=== PATIENT | male | born 2000 | race Caucasian/White ===

== ENCOUNTER 2022-06-25 17:01 | Emergency (ER) | payer OTHER, SELFPAY ==
[2022-06-25 17:06] VITALS: BP 154/77; PULSE 89; RESP 18; TEMP 36.4; O2SAT 99
--- NOTE | 2022-06-25 17:30 | ED.SKABFB ---
HPI - Skin/Abscess/Foreign Bdy General Chief complaint: Skin/Abscess/Foreign Body Stated complaint: abscess Time Seen by Provider: 06/25/22 17:20 History of Present Illness HPI narrative: 21-year-old male here for evaluation of the area of redness and swelling to his right thigh. Patient states that he noticed a an ingrown hair about 3 days ago. He began to pick at the area and has been squeezing to attempt expressing drainage, and since then he has noticed surrounding redness and increased pain at the site. He has been applying triple antibiotic ointment and hot compresses. He denies any fevers or chills, nausea or vomiting, systemic symptoms. Related Data Allergies Allergy/AdvReac Type Severity Reaction Status Date / Time No Known Allergies Allergy Verified 06/25/22 17:12 Review of Systems Review of Systems: Gen: Denies fevers or chills Eyes: Denies eye pain or visual change ENT: Denies congestion Respiratory: Denies shortness of breath or cough CV: Denies chest pain or palpitations GI: Denies abdominal pain nausea, emesis or diarrhea denies burning, urgency, frequency or hematuria Musculoskeletal: Denies back pain or muscle pain Neuro: Denies numbness, tingling, weakness or focal weakness Skin: Reports redness and swelling to right thigh Except as documented, all other systems reviewed and negative Exam Narrative: APPEARANCE: Well appearing, no pain in distress, well-nourished. Head: Normocephalic and atraumatic. EYES: PERRLA/EOMI, conjunctivae clear NOSE: No nasal drainage EARS: External ear normal in appearance THROAT: Oropharynx is clear. Mucous membranes are moist. NECK: Supple. No adenopathy, no masses. RESPIRATORY: Airway patent, respirations nonlabored. Clear to auscultation bilaterally, no rales, rhonchi, wheezing. CARDIOVASCULAR: Regular rate and rhythm without murmurs, rubs, or gallops. ABDOMINAL: Normoactive bowel sounds. Soft, nontender, nondistended. No rebound tenderness or guarding. MUSCULOSKELETAL: Extremities are warm and well-perfused. Moves all extremities well. No edema. NEURO: Normal speech. No focal neurologic deficits. SKIN: 5 x 5 cm area of erythema that is warm to touch to right anterior thigh with a central area of fluctuance and induration that is draining bloody purulent material PSYCHIATRIC: Normal affect/mood. Course Vital Signs Vital signs: Vital Signs Temperature 97.5 F L 06/25/22 17:06 Pulse Rate 89 06/25/22 17:06 Respiratory Rate 18 06/25/22 17:06 Blood Pressure 154/77 H 06/25/22 17:06 Pulse Oximetry 99 06/25/22 17:06 Oxygen Delivery Room Air 06/25/22 17:06 Temperature 97.5 F L 06/25/22 17:06 Pulse Rate 89 06/25/22 17:06 Respiratory Rate 18 06/25/22 17:06 Blood Pressure 154/77 H 06/25/22 17:06 Pulse Oximetry 99 06/25/22 17:06 Oxygen Delivery Room Air 06/25/22 17:06 Procedures Abscess I/D lower extremity: Date of Incision: 06/25/22 Time of Incision: 17:55 Local Anesthetic: lidocaine 1% Amount of anesthesia used (mL): 2 Technique: incised with #11 blade and probed loculations Amount of fluid expressed (mL): 2 Irrigation: Yes Packing used?: none I&D Results: Pus and Blood MDM - Skin/Abscess/Foreign Bdy MDM Narrative Medical decision making narrative: 21-year-old male here for evaluation of a 5x5 cm lesion to his thigh that is consistent with cellulitis with abscess, started as a small folliculitis. He has no crepitus, pain out of proportion to exam, history of immunocompromised state to suggest more severe etiology. Location not involving groin/testicles, not consistent with Sukhwinder's. No systemic sx or fever. The abscess was lanced in the ED with drainage of purulent material. The area of erythema was outlined in the ED. Patient will be discharged with antibiotics and discussed return precautions. Discharge Plan Discharge Clinical Impression: Abscess Patient Di
[2022-06-25] MEDS: LIDOCAINE/PRILOCAINE CREAM 2.5-2.5% TUBE 1 EACH (17:43)
[2022-06-25] MEDS: IBUPROFEN 600 MG TABLET PO (17:43)
== END 2022-06-25 18:19 | disposition home or self-care (01) ==
PROVIDERS: Emergency Provider Physician Assistant
DX: L02.415 Cutaneous abscess of right lower limb (principal)
CPT/HCPCS: 10060; 99283; A9270